=== PATIENT | female | born 1945 | race Caucasian/White ===

== ENCOUNTER → 2019-01-04 | Outpatient (CLI) | payer MEDICARE | END | disposition home or self-care (01) | LOC: LAB 09:18 | PROVIDERS: ATTEND Family Medicine | DX: Z12.11 Encounter for screening for malignant neoplasm of colon (principal) | CPT/HCPCS: 82272 ==

== ENCOUNTER 2021-01-17 18:15 | Emergency (ER) | payer MEDICARE ==
[2021-01-17 18:55] VITALS: BP 140/73; PULSE 64; TEMP 98.4
--- NOTE | 2021-01-17 19:24 | ED ---
General Adult HPI - General Chief complaint: Upper Respiratory Infection Stated complaint: Covid+ Time Seen by Provider: 01/17/21 19:12 Source: site interpreter Mode of arrival: ambulatory Limitations: no limitations - History of Present Illness Initial comments: Dictation was produced using [employer] dictation software. please excuse any grammatical, word or spelling errors. Chief Complaint: 75-year-old female presents with cough and fatigue History of Present Illness: Is a 75-year-old female shaped test positive for coronavirus today. States she is felt like she has had a cold for several days. Her tested positive today also on dispense of the medic 2 days. Patient has a shortness of breath. No chest pain. She is vaccinated. She received the [employer] to series vaccine back in July. Patient states that her symptoms are very mild. She is told that her friends suggest that she be inquire about the monoclonal antibody infusion. He is unsure of when her symptoms started. The ROS documented in this emergency department record has been reviewed and confirmed by me. Those systems with pertinent positive or negative responses have been documented in the HPI. All other systems are other negative and/or noncontributory. PHYSICAL EXAM: General Impression: Alert and oriented x3, not in acute distress HEENT: Normocephalic atraumatic, extra-ocular movements intact, pupils equal and reactive to light bilaterally, mucous membranes moist. Cardiovascular: Heart regular rate and rhythm Chest: Able to complete full sentences, no retractions, no tachypnea, lungs clear to auscultation bilaterally Abdomen: abdomen soft, non-tender, non-distended, no organomegaly Musculoskeletal: Pulses present and equal in all extremities, no peripheral edema Motor: no focal deficits noted Neurological: CN II-XII grossly intact, no focal motor or sensory deficits noted Skin: Intact with no visualized rashes Psych: Normal affect and mood ED course: 75 old female tested positive for coronavirus today. It's unclear when her symptoms began. It is likely less than 10 days ago. All signs upon arrival are within acceptable limits. Patient's well-appearing at bedside. Showing no signs of respiratory distress. Lungs are clear to auscultation bilaterally. Monoclonal antibodies were offered to the patient however she r efused. No indication for any further workup at this time considering patient has benign physical exam and stable vitals. Patient will be discharged. - Related Data Allergies Allergy/AdvReac Type Severity Reaction Status Date / Time atenolol AdvReac Rash/Hives Verified 01/17/21 18:56 Review of Systems ROS Statement: Those systems with pertinent positive or pertinent negative responses have been documented in the HPI. ROS Other: All systems not noted in ROS Statement are negative. General Exam Limitations: no limitations Course Vital Signs 01/17/21 18:50 Temperature 98.4 F Pulse Rate 64 Respiratory 18 Rate Blood Pressure 140/73 O2 Sat by Pulse 96 Oximetry Disposition Clinical Impression: Coronavirus infection Disposition: HOME SELF-CARE Condition: Good Instructions (If sedation given, give patient instructions): Coronavirus Disease 2019 (COVID-19) Is patient prescribed a controlled substance at d/c from ED?: No Referrals: Dany Sandra MD [Primary Care Provider] - 1-2 days
[2021-01-17 19:34] VITALS: RESP 16
== END 2021-01-17 19:40 | disposition home or self-care (01) ==
LOC: EC 18:15
DX: U07.1 COVID-19 (principal); Z88.8 Allergy status to other drugs, medicaments and biological substances
CPT/HCPCS: 99284

== ENCOUNTER → 2021-04-05 | Outpatient (CLI) | payer MEDICARE ==
--- NOTE | 2021-04-05 13:17 | XR ---
Cervical spine HISTORY: Neck pain, M54.2 9 images of the cervical spine submitted. There is multilevel facet arthropathy. Cervical vertebral bodies show preserved height. Bone minerali zation is reduced. There is anterolisthesis grade 1 C3-4, C4-5, C6-7, there is retrolisthesis grade 1 C5-6. There is associated loss of disc height at multiple levels, spondylosis. Prevertebral soft tis sues are normal. Odontoid view is suboptimal. Paratracheal density on the right may be due to vascula r shadow but is indeterminate. IMPRESSION: Degenerative disc disease and facet arthropathy. This are findings above.
== END | disposition home or self-care (01) ==
LOC: RADXRMAIN 11:52
PROVIDERS: ATTEND Family Medicine
DX: M50.30 Other cervical disc degeneration, unspecified cervical region (principal); M47.892 Other spondylosis, cervical region
CPT/HCPCS: 72040

== ENCOUNTER 2024-04-07 22:29 | Emergency (ER) | payer MEDICARE ==
[2024-04-07 22:56] VITALS: TEMP 98.5
[2024-04-07 23:43] LABS: Basophils % (A) 0 %; Eosinophils # (A) 0.1 k/uL (0-0.7); Eosinophils % (A) 1 %; HCT 42.6 % (34.0-46.0); HGB 14.4 gm/dL (11.4-16.0); Lymphocytes # (A) 0.5 k/uL (1.0-4.8); Lymphocytes % (A) 3 %; MCH 31.6 pg (25.0-35.0); MCHC 33.7 g/dL (31.0-37.0); MCV 93.7 fL (80.0-100.0); Mean Platelet Volume 7.1; Monocytes # (A) 0.7 k/uL (0-1.0); Monocytes % (A) 5 %; Neutrophils % (A) 90 %; Platelet Count 299 k/uL (150-450); RBC 4.55 m/uL (3.80-5.40); RDW 12.7 % (11.5-15.5); WBC 15.7 k/uL (3.8-10.6)
--- NOTE | 2024-04-07 23:45 | XR ---
EXAMINATION TYPE: XR chest 2V DATE OF EXAM: 04/07/2024 COMPARISON: Chest x-ray October 23, 2021 HISTORY: Chest pain TECHNIQUE: Frontal and lateral views of the chest are obtained. FINDINGS: There is no focal air space opacity, pleural effusion, or pneumothorax seen. The cardiac silhouette size remains within normal limits. Atherosclerotic change aortic knob redemonstrated. Stab le thickening of the right paratracheal stripe could reflect product of enlarged right thyroid lobe. The osseous structures are intact. IMPRESSION: No acute process. No significant change from prior. [facility], , 04/07/2024 11:43 PM
--- NOTE | 2024-04-07 23:47 | ED ---
Chest Pain HPI - General Chief Complaint: Chest Pain Stated Complaint: Chest Pain Time Seen by Provider: 04/07/24 23:22 Source: patient, family Mode of arrival: ambulatory Limitations: no limitations - History of Present Illness Initial Comments: Patient is a 78-year-old woman who presents for evaluation of substernal chest tightness or pressure that developed tonight while she was watching television. The patient states this was accompanied by 1 episode of vomiting. She states that her had given her naproxen in the symptoms started to improve. She does not have other associated symptoms. MD Complaint: chest pain Onset/Timin -: hour(s) Onset: during rest Pain Location: substernal Pain Radiation: none Severity: moderate Quality: other (Pressure) Consistency: other (Proving) Improves With: other (Naproxen) Worsens With: nothing Anginal Symptoms: vomiting Treatments Prior to Arrival: other - Related Data Home Medications Medication Instructions Recorded Confirmed Losartan Potassium 100 mg PO DAILY 10/23/21 10/23/21 Allergies Allergy/AdvReac Type Severity Reaction Status Date / Time atenolol AdvReac Rash/Hives Verified 04/07/24 22:57 lisinopril AdvReac Cough Verified 04/07/24 22:57 Review of Systems ROS Statement: Those systems with pertinent positive or pertinent negative responses have been documented in the HPI. ROS Other: All systems not noted in ROS Statement are negative. Constitutional: Denies: fever, chills Respiratory: Denies: cough, dyspnea Cardiovascular: Reports: chest pain. Denies: palpitations, orthopnea, edema, syncope Gastrointestinal: Reports: vomiting. Denies: abdominal pain, nausea, diarrhea, melena, hematochezia Genitourinary: Denies: dysuria, hematuria Musculoskeletal: Denies: back pain Skin: Denies: rash Neurological: Denies: headache, weakness, numbness EKG Findings - EKG Results: EKG: interpreted by ERMD, sinus rhythm, normal axis, normal QRS EKG shows: bradycardia (59 bpm) - Blocks, [place], Hypertrophy, ST Abn: Repolarization changes or abnormalities: nonspecific abnormality, ST segment, and/or T wave Past Medical History Past Medical History: Hyperlipidemia, Hypertension Additional Past Medical History / Comment(s): Covid 01/2021 History of Any Multi-Drug Resistant Organisms: None Reported Past Surgical History: No Surgical Hx Reported Past Anesthesia/Blood Transfusion Reactions: Unable to Obtain Additional Past Anesthesia/Blood Transfusion Reaction / Comment(s): Pt has never had surgery Past Psychological History: No Psychological Hx Reported Smoking Status: Never smoker Past Alcohol Use History: Occasional Past Drug Use History: None Reported - Past Family History Father Family Medical History: Cancer, GERD/Reflux Additional Family Medical History / Comment(s): Esophageal cancer Mother Family Medical History: Cancer Additional Family Medical History / Comment(s): Ovarian cancer. General Exam Limitations: no limitations General appearance: alert, in no apparent distress Head exam: Present: atraumatic, normocephalic Eye exam: Present: normal appearance. Absent: scleral icterus, conjunctival injection ENT exam: Present: normal oropharynx Neck exam: Present: normal inspection Respiratory exam: Present: normal lung sounds bilaterally. Absent: respiratory distress, wheezes, rales, rhonchi, stridor, chest wall tenderness, accessory muscle use Cardiovascular Exam: Present: regular rate, normal rhythm, normal heart sounds. Absent: systolic murmur, diastolic murmur, rubs, gallop GI/Abdominal exam: Present: soft. Absent: distended, tenderness, guarding, rebound, rigid, mass Extremities exam: Present: normal inspection, normal capillary refill. Absent: pedal edema, calf tenderness Back exam: Present: normal inspection. Absent: CVA tenderness (R), CVA tenderness (L) Neurological exam: Present: alert Skin exam: Present: warm, dry, intact, normal color. Absent: rash Course Vital Signs 04/07/24 04/07/24 04/08/24 22:51 23:30 00:00 Temperature 98.5 F Pulse Rate 62 63 61 Respiratory 16 18 18 Rate Blood Pressure 193/77 188/91 156/72 O2 Sat by Pulse 98 97 97 Oximetry 04/08/24 01:19 Temperature Pulse Rate 67 Respiratory 18 Rate Blood Pressure 140/81 O2 Sat by Pulse 97 Oximetry Chest Pain MDM - MDM The patient had chest x-ray that I interpreted as negative for acute infiltrate, pneumothorax, congestive heart failure On reevaluation, patient states that her pain has resolved. She would like to go home. I did recommend having admission for telemetry monitoring, serial cardiac enzymes and cardiology consultation although the pain not entirely typical. Patient states she will follow with cardiology. She will return should symptoms recur. Was pt. sent in by a medical professional or institution ([facility], ANALYTICAL CHEMIST, urgent care, hospital, or retirement...) When possible be specific @ -[No] Did you speak to anyone other than the patient for history (EMS, parent, family, police, friend...)? What history was obtained from this source @ -[No] Did you review nursing and triage notes (agree or disagree)? Why? @ -[I reviewed and agree with nursing and triage notes] Were old charts reviewed (outside hosp., previous admission, EMS record, old EKG, old radiological studies, urgent care reports/EKG's, retirement records)? Report findings @ -[No old charts were reviewed] Differential Diagnosis (chest pain, altered mental status, abdominal pain women, abdominal pain men, vaginal bleeding, weakness, fever, dyspnea, syncope, headache, dizziness, GI bleed, back pain, seizure, CVA, palpatations, mental health, musculoskeletal)? @ -Differential Chest Pain: Stable Angina, Unstable Angina, STEMI, NSTEMI Aortic Dissection, Pneumothorax, Musculoskeletal, Esophageal Spasm GERD, Cholecystitis, Pancreatitis, Zoster, this is not meant to be an all-inclusive list. EKG interpreted by me (3pts min.). @ -[I interpreted as above X-rays interpreted by me (1pt min.). @ -[I interpreted as above CT interpreted by me (1pt min.). @ -[None done] U/S interpreted by me (1pt. min.). @ -[None done] What testing was considered but not performed or refused? (CT, X-rays, U/S, labs)? Why? @ -[None] What meds were considered but not given or refused? Why? @ -[None] Did you discuss the management of the patient with other professionals (professionals i.e. [facility]ia, ANALYTICAL CHEMIST, lab, RT, psych nurse, long term care social worker, senior mobile web developer, teacher, collections officer, mattress spring encaser)? Give summary @ -[No] Was smoking cessation discussed for >3mins.? @ -[No] Was critical care preformed (if so, how long)? @ -[No] Were there social determinants of health that impacted care today? How? (Homelessness, low income, unemployed, alcoholism, drug addiction, transportation, low edu. Level, literacy, decrease access to med. care, senior care, rehab)? @ -[No] Was there de-escalation of care discussed even if they declined (Discuss DNR or withdrawal of care, Hospice)? DNR status @ -[No] What co-morbidities impacted this encounter? (DM, HTN, Smoking, COPD, CAD, Cancer, CVA, ARF, Chemo, Hep., AIDS, mental health diagnosis, sleep apnea, morbid obesity)? @ -[None] Was patient admitted / discharged? Hospital course, mention meds given and route, prescriptions, significant lab abnormalities, going to OR and other pertinent info. @ -[See above Undiagnosed new problem with uncertain prognosis? @ -[No] Drug Therapy requiring intensive monitoring for toxicity (Heparin, Nitro, Insulin, Cardizem)? @ -[No] Were any procedures done? @ -[No] Diagnosis/symptom? @ -[Acute chest pain Acute, or Chronic, or Acute on Chronic? @ -[Acute Uncomplicated (without systemic symptoms) or Complicated (systemic symptoms)? @ -[Uncomplicated Side effects of treatment? @ -[No] Exacerbation, Progression, or Severe Exacerbation? @ -[No] Poses a threat to life or bodily function? How? (Chest pain, [place], [place], pneumonia, PE, COPD, DKA, ARF, appy, cholecystitis, CVA, Diverticulitis, Homicidal, Suicidal, threat to staff... and all critical care pts) @ -[There is possible risk of cardiac disease, discussed with patient and she would rather have outpatient follow-up Disposition Clinical Impression: Chest pain Disposition: HOME SELF-CARE Condition: Good Instructions (If sedation given, give patient instructions): Chest Pain (ED) Is patient prescribed a controlled substance at d/c from ED?: No Referrals: Marleen Whiting MD [Primary Care Provider] - 1-2 days
[2024-04-07 23:52] LABS: INR 0.9 (<1.2); Partial Thromboplastin Time 26.3 sec (22.0-30.0); Prothrombin Time 10.2 sec (10.0-12.5)
[2024-04-07 23:55] LABS: ALT 19 U/L (4-34); AST 24 U/L (14-36); African American GFR (CKD) 84 (>60 ml/min/1.73 sqM); Albumin 4.1 g/dL (3.5-5.0); Alkaline Phosphatase 114 U/L (38-126); Anion Gap 6 mmol/L; Blood Urea Nitrogen 25 mg/dL (7-17); Calcium 9.2 mg/dL (8.4-10.2); Carbon Dioxide 28 mmol/L (22-30); Chloride 99 mmol/L (98-107); Glucose 184 mg/dL (74-99); Magnesium 1.9 mg/dL (1.6-2.3); Non-African American GFR(CKD) 73 (>60 ml/min/1.73 sqM); Sodium 133 mmol/L (137-145); Total Bilirubin 0.4 mg/dL (0.2-1.3); Total Protein 6.8 g/dL (6.3-8.2)
[2024-04-08 00:54] VITALS: RESP 18
[2024-04-08 01:20] VITALS: BP 140/81; PULSE 67
== END 2024-04-08 01:25 | disposition home or self-care (01) ==
LOC: EC 22:29
DX: R07.89 Other chest pain (principal); R00.1 Bradycardia, unspecified; Z88.8 Allergy status to other drugs, medicaments and biological substances; Z86.16 Personal history of COVID-19
CPT/HCPCS: 36415; 71046; 80053; 83735; 84484; 85025; 85610; 85730; 93005; 99285